=== PATIENT | male | born 1970 | race Caucasian/White ===

== ENCOUNTER 2024-11-02 00:41 | Emergency (ER) | payer MEDICAID, SELFPAY ==
[2024-11-02 00:46] VITALS: BP 126/93
--- NOTE | 2024-11-02 01:21 | ED.GENMED ---
History of Present Illness
General
Chief Complaint: Skin Problem
Source: patient
Time Seen by Provider: 11/02/24 01:16
History of Present Illness
History of Present Illness:
54-year-old male brought to the emergency room via [employer]. He was taken to the snf where they said he required medical clearance before they would accept him. It appears the reason they requested medical clearance is the patient has a
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 Patient states that he has history of a left hip infection. This has been an issue for years. Factor records here at [facility] back to 2018. Patient states he knows he is having a flare when he has
an increase in the amount of pain. He had been on prescription medications but he does not know the name. Patient denies any fever. The pain is not at a elevated level. He feels at his baseline.
Past History
Past History
ED Past Medical History: HTN and Other (History of alcohol abuse, IV drug abuse)
ED Past Surgical History: Tonsilectomy and Other (History of bilateral inguinal hernia repairs, umbilical hernia repair)
Social History
Personal:
Living: alone
Employment: Not employed
Phy Exam
Physical Exam
Physical Exam:
General: Awake, Alert, Oriented X3. No acute distress.
Vitals: Afebrile
Head: Atraumatic
Eyes: Pupils equal, EOMI
Throat: Airway intact, no exudates
Neck: Trachea midline
Lungs: Clear and equal b/l
Heart: Regular rate, no murmurs
Abd: Soft, Nontender, No pulsatile mass
Neuro: Nonfocal
Skin: Warm, dry, no rash
Extremities: Area of erythema noted right groin. The does appear to be a sinus tract. No purulence expressed at this time. Pulses equal b/l, no edema
Course
Vital Signs
Initial and Last Documented VS:
Initial Vital Signs
Temp Pulse Resp BP Pulse Ox
97.8 F 91 18 126/93 99
11/02/24 00:46 11/02/24 00:46 11/02/24 00:46 11/02/24 00:46 11/02/24 00:46
Last Documented Vital Signs
Temp Pulse Resp BP Pulse Ox
97.8 F 91 18 126/93 99
11/02/24 00:46 11/02/24 00:46 11/02/24 00:46 11/02/24 00:46 11/02/24 00:46
MDM/Problems Addressed
MDM/Problems Addressed:
Patient presents for medical clearance. He has no complaints. He is essentially at his baseline which is not the picture of health but he does not appear to have an unstable medical condition requiring hospitalization. He does have a chronic
infection that appears in the left groin/hip. Based upon the fact he is not having increased pain and does not have a fever I do not believe there is any acute intervention necessary. Should the patient have a prolonged incarceration he should
have arrangements made for orthopedic follow-up. If he is released in the short-term he should follow-up with his orthopedic surgeons at [facility].
*Pulse Oximetry
Patient hypoxic: no
*Critical Care Note
Total Time (30-74mins, 75-104mins- exclusive of procedures): Not Applicable
ED Attending Note
-
Portions of this chart may have been created with voice recognition software.� Occasional wrong word or��sound alike� substitutions may have occurred due to the inherent limitations of voice recognition software.
Discharge Plan
Departure
Patient Disposition: [facility]
Date of Disposition: 11/02/24
Time of Disposition: :
Condition: Fair
Discharge Problem:
Medical clearance exam
Instructions: Skin Rash (DC)
Prescriptions:
No Action
amlodipine 10 MG tablet
10 mg PO DAILY
lisinopril 10 MG tablet
10 mg PO DAILY
hydrochlorothiazide 25 MG tablet
25 mg PO DAILY
doxycycline hyclate 100 MG capsule
100 mg PO Q12 Qty: 24 0RF
metronidazole 500 MG tablet
500 mg PO Q12 Qty: 24 0RF
ciprofloxacin HCl 500 MG tablet
500 mg PO BID Qty: 24 0RF
oxycodone 5 MG tablet
5 mg PO Q4HPRN PRN (Reason: pain) Qty: 18 0RF
Referrals:
UNKNOWN - PT NOT,INTERVIEWE [Family Provider] -
Activity Restrictions/Additional Instructions:
Patient reports a longstanding chronic history of left hip infections. He is afebrile and denies increased pain. There is no evidence for an unstable process requiring hospitalization. The patient is essentially at his baseline level of health.
He should follow-up with his orthopedic surgeons at [facility] if he is released in the near term. If he remains incarcerated for a longer period of time arrangements should be made for orthopedic follow-up
Patient is medically cleared for incarceration
Interventions
Interventions:
*Risk Screen - Suicide Last Done: 11/02/24 00:46
*General Assessment Last Done: 11/02/24 00:46
*Neglect/Abuse Screening Last Done: 11/02/24 00:46
ED- Fall Risk Assessment Last Done: 11/02/24 01:52
*ED COVID-19 Vaccine History Last Done: 11/02/24 01:52
*Nursing Disposition Last Done: 11/02/24 01:52
Discharge Date and Time
Discharge Date/Time: 11/02/24 01:53
Print Language: POLISH
== END 2024-11-02 01:53 ==
LOC: EMR 00:41
PROVIDERS: EMERGENCY PHYSICIAN Emergency Medicine
DX: B99.8 Other infectious disease (principal); I10 Essential (primary) hypertension; Z98.890 Other specified postprocedural states
CPT/HCPCS: 99282